=== PATIENT | female | born 1980 | race Two or more races ===

== ENCOUNTER 2023-07-19 16:56 | Emergency (ER) | payer MEDICAID ==
[~2023-07-19] VITALS: Ht 160 cm; Wt 68.2 kg
[~2023-07-19 16:56] MED LIST: NO MEDS
[2023-07-19 17:04] VITALS: TEMP 98.2
[2023-07-19] MEDS ORDERED: GENTAMICIN SULFATE 0.3% OPHTHALMIC SOLUTION 5 ML OU ONE (17:30)
[2023-07-19] MEDS ORDERED: HYDROCODONE/ACETAMINOPHEN 5-325 MG TABLET PO ONE (17:30)
[2023-07-19] MEDS ORDERED: ERYT3.5O8 OU (18:23)
[2023-07-19] MEDS ORDERED: HYDR-4072 PO (18:23)
[2023-07-19 18:45] VITALS: BP 136/85; PULSE 81; RESP 16
== END 2023-07-19 18:59 | disposition home or self-care (01) ==
LOC: EMS 16:56
DX: H10.33 Unspecified acute conjunctivitis, bilateral (principal)
CPT/HCPCS: 99283

== ENCOUNTER 2023-07-23 14:32 | Emergency (ER) | payer MEDICAID ==
[~2023-07-23] VITALS: Ht 162.6 cm; Wt 68.2 kg
[~2023-07-23 14:32] MED LIST changes: +ERYT3.5O8 OU; +HYDR-4072 PO; -NO MEDS
[2023-07-23 14:43] VITALS: TEMP 98.4
[2023-07-23] MEDS ORDERED: PROPARACAINE HCL 0.5% 15 ML OPHTHALMIC SOLUTION OU ONE (15:45)
[2023-07-23] MEDS ORDERED: FLUORESCEIN SODIUM 1 MG STRIP OU ONE (15:45)
[2023-07-23 16:15] VITALS: BP 135/72; PULSE 82; RESP 12
[2023-07-23] MEDS ORDERED: TOBR5DRO44 OU (16:16)
[2023-07-23] MEDS ORDERED: ACET-2080 PO (16:16)
== END 2023-07-23 16:30 | disposition home or self-care (01) ==
LOC: EMS 14:34
DX: S05.02XA Injury of conjunctiva and corneal abrasion without foreign body, left eye, initial encounter (principal); H10.33 Unspecified acute conjunctivitis, bilateral; X58.XXXA Exposure to other specified factors, initial encounter; Y93.89 Activity, other specified; Y92.89 Other specified places as the place of occurrence of the external cause; Y99.8 Other external cause status
CPT/HCPCS: 99283